=== PATIENT | male | born 1945 | race Caucasian/White ===

== ENCOUNTER 2020-03-27 13:39 | Inpatient (IN) | payer OTHER ==
[2020-03-27] MEDS ORDERED: CEFTRIAXONE/SWI 1gm 1 GM/10 ML SYR ONE (15:02)
[2020-03-27] MEDS ORDERED: IPRATROPIUM BROM 0.5MG/2.5ML ONE (15:02)
[2020-03-27] MEDS ORDERED: ALBUTEROL 2.5 MG/3 ML NEB SOL ONE (15:02)
[2020-03-27 15:15] LABS: Absolute Lymphocytes (CBC) 1.3 K/uL (0.7-4.9); Basophils % 0.3 % (0-1.3); Hematocrit 45.8 % (39.6-49.0); MPV 7.6 fL (7.6-11.3); RBC Red Blood Cell Count 5.05 M/uL (4.33-5.43)
[2020-03-27 15:23] LABS: Protime INR 1.05
--- NOTE | 2020-03-27 15:26 | RAD REPORT ---
EXAM DESCRIPTION: RAD - Chest Single View - 03/27/2020 2:57 pm CLINICAL HISTORY: SOB, smoking history, history of pneumonia, history of hemoptysis COMPARISON: None TECHNIQUE: AP portable chest image was obtained 03/27/2020 2:57 pm . FINDINGS: Large mass density is present superimposed on the right hilum and extending to the right l irma apex. Diffusely prominent interstitial markings throughout the lung lee with baseline for the patient unknown. Right hilar and right upper lung field findings are suspicious for malignancy. An atypical pneumonia presentation would be possible. Diffuse interstitial pattern could be extensive fibrosis, interstitia l edema or infiltrate. Heart size is normal. Pulmonary vasculature mostly obscured by the above detailed abnormalities. No measurable pleural effusion and no pneumothorax. No acute bony abnormality seen. No acute aortic find ings suspected. IMPRESSION: Large mass density filling the right hilum and right upper lung field. Finding is suspic ious for malignancy rather than atypical pneumonia or other mass. Diffusely prominent interstitial pattern could be fibrosis, interstitial edema, interstitial infiltra te or a combination. Follow-up CT chest imaging is recommended.
[2020-03-27 15:33] LABS: Bilirubin Direct 0.2 mg/dL (0-0.2); Bilirubin Total 0.5 mg/dL (0.2-1.0); Magnesium 2.2 mg/dL (1.8-2.4); Troponin (Emerg Dept Use Only) 0.14 ng/mL (0.0-0.045)
[2020-03-27 15:38] LABS: Potassium 2.8 mmol/L (3.5-5.1)
--- NOTE | 2020-03-27 16:11 | RAD REPORT ---
EXAM DESCRIPTION: CT - Chest Abdomen Pelvis W Cont - 03/27/2020 3:55 pm CLINICAL HISTORY: Chest pain;Dyspnea COMPARISON: No comparisons TECHNIQUE: Following dynamic enhancement using 100 milliliters nonionic IV contrast, axial imaging o f the chest, abdomen and pelvis was performed. Biphasic technique was utilized through the abdomen. No oral contrast administered. All CT scans are performed using dose optimization technique as appropriate and may include automated exposure control or mA/KV adjustment according to patient size. FINDINGS: Patient has a baseline of advanced emphysema. No pulmonary embolism present. No acute aort ic finding. No pleural effusion, pleural thickening or pneumothorax. A large 7.4 cm AP x 5.1 cm TR x 16 cm CC malignant mass is present in the anteromedial left chest. Th is extends from the anterior inferior margin of the left ventricle near the base superiorly to the ao rtic arch level. Mass partially encircles the left pulmonary artery and partially encircles the left mainstem bronchus. Mass involves the mediastinum and anteromedial left chest. Approximately 5.2 cm AP x 5 point and cm TR by 5.4 cm CC mass fills the superior right hilum. There i s obstruction of the right upper lobe bronchus. Postobstructive complete atelectasis of the right upp er lobe is present. No direct invasion of the chest wall confirmed. No abnormal axillary lymphadenopa thy. No focal lesions identified in the liver. No adrenal mass identified. Spleen and pancreas show no elsy picious findings. Gallbladder is absent or tightly contracted. No biliary tree dilatation. Delete vladimir ect Symmetric renal function is seen with no mass or hydronephrosis. Small renal cysts are present. N o urinary bladder abnormality seen. The prostate gland is enlarged and projects into the bladder base . This appears to be extrinsic compression rather than invasion. No gastric dilatation or wall thickening. Moderately large stool volume throughout the colon. No acut e diverticulitis. Patient has prominent diverticulosis. No primary colon process identified. Disc and bony degenerative changes are present. No pathologic bone process identified. No significant vascular findings. IMPRESSION: As detailed above, patient has large malignant masses filling the anterior chest. On the right the mass fills from the right hilum to near the right apex. Left mass component extends from t he anterior inferior heart border to the top of the aortic arch. Right malignant mass obstructs the right upper lobe bronchus with postobstructive atelectasis and/ or pneumonia of the right upper lobe. No liver or adrenal lesions seen. No acute or emergent finding below the diaphragm.
--- NOTE | 2020-03-27 16:13 | RAD REPORT ---
EXAM DESCRIPTION: CT - Soft Tissue Neck W/Contr - 03/27/2020 3:55 pm CLINICAL HISTORY: Swelling;Congestion COMPARISON: No comparisons TECHNIQUE: During dynamic enhancement using 100 milliliters nonionic IV contrast, axial 5 millimeter thick images of the neck were obtained. All CT scans are performed using dose optimization technique as appropriate and may include automated exposure control or mA/KV adjustment according to patient size. FINDINGS: Limited intracranial portion the examination is unremarkable. Mastoid air cells and partia lly visualized paranasal sinuses are clear. No gross globe or orbital content abnormality seen. No ph aryngeal mucosal mass or asymmetry. No focal laryngeal or epiglottis abnormality. No abnormal cervical lymphadenopathy. No cervical bronchial obstructive process seen. Parotid, submandibular and thyroid gland tissues are unremarkable. Prominent bony degenerative change present without acute finding. IMPRESSION: Contrast-enhanced CT cervical/soft tissue neck imaging shows no acute or suspicious find ing.
[2020-03-27] MEDS ORDERED: KCL 20 MEQ/100 mL IVPB 20 MEQ/100 ML BAG IV ONE (16:21)
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
--- NOTE | 2020-03-27 16:43 | RAD REPORT ---
EXAM DESCRIPTION: US - Extrem Venous W Compress Arturo - 03/27/2020 4:31 pm CLINICAL HISTORY: SWELLING, bilateral leg pain, bilateral leg swelling COMPARISON: None. TECHNIQUE: Real-time sonographic evaluation of the bilateral lower extremity common femoral, superfi cial femoral, popliteal and posterior tibial veins was performed. FINDINGS: Normal compressibility, flow augmentation, phasic flow and spontaneous flow are identified in the left and right lower extremity common femoral, superficial femoral, popliteal and posterior t ibial veins. No intraluminal filling defects seen. IMPRESSION: No DVT in either lower extremity.
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
[2020-03-27 17:24] LABS: Urine Bacteria NONE SEEN /HPF (NONE SEEN); Urine Culture Reflex Order NOT NEEDED; Urine Mucus 1+ /HPF (NONE SEEN); Urine RBC <5 /HPF (NONE SEEN)
[2020-03-27 17:24] LABS: Urine Blood NEGATIVE (NEG); Urine Glucose NEGATIVE (NEG); Urine Protein TRACE (NEG)
[2020-03-27] MEDS ORDERED: METOPROLOL TARTRATE 5 MG/5 ML INJ IV PRN (22:20)
[2020-03-27] MEDS ORDERED: ACETAMINOPHEN 500 MG TAB PO PRN (22:20)
[2020-03-27] MEDS ORDERED: ONDANSETRON 4 MG/2 ML VIAL IV PRN (22:20)
[2020-03-27 22:36] VITALS: BMI 21.0
[2020-03-27] MEDS ORDERED: LORAZEPAM 0.5 MG TABLET PO ONE (22:38)
[2020-03-27] MEDS: ARFORMOTEROL TARTRATE 15 MCG/2 ML VIAL.NEB NEB SCH (22:40)
[2020-03-27 23:07] LABS: CKMB Creatine Kinase MB 2.5 ng/mL (0.3-3.6); Troponin I 0.18 ng/mL (0.0-0.045)
[2020-03-27] MEDS: BENZONATATE 100 MG CAP PO PRN (23:39)
[2020-03-28] MEDS: METHYLPREDNISOLONE 40 MG INJ IV SCH ×2 (00:14→08:34)
[2020-03-28] MEDS: KCL 20 MEQ/100 mL IVPB 20 MEQ/100 ML BAG IV SCH ×3 (02:23→06:55)
[2020-03-28] MEDS ORDERED: NA CHLORIDE 0.9% 500 ML ONE (02:27)
[2020-03-28 06:06] LABS: Absolute Lymphocytes (CBC) 0.8 K/uL (0.7-4.9); Basophils % 0.1 % (0-1.3); Hematocrit 39.8 % (39.6-49.0); Lymphocytes % 6.3 % (15.3-44.8); MPV 7.3 fL (7.6-11.3); RBC Red Blood Cell Count 4.39 M/uL (4.33-5.43)
[2020-03-28 06:08] LABS: Protime INR 1.16
[2020-03-28 06:17] LABS: CKMB Creatine Kinase MB 2.2 ng/mL (0.3-3.6); Troponin I 0.12 ng/mL (0.0-0.045)
[2020-03-28 06:22] LABS: ALT/SGPT 25 U/L (12-78); AST/SGOT 23 U/L (15-37); Albumin 2.4 g/dL (3.4-5.0); Alkaline Phosphatase 85 U/L (45-117); BUN Blood Urea Nitrogen 15 mg/dL (7-18); Bicarbonate 34 mmol/L (21-32); Bilirubin Total 0.4 mg/dL (0.2-1.0); Glucose Level 113 mg/dL (74-106); HDL Cholesterol 58 mg/dL (40-60); LDL Cholesterol, Calculated 62 (<130); Magnesium 2.2 mg/dL (1.8-2.4); Potassium 3.5 mmol/L (3.5-5.1); Protein, Total 6.6 g/dL (6.4-8.2); Sodium Level 145 mmol/L (136-145); Thyroid Stimulating Hormone 0.447 uIU/mL (0.360-3.740)
[2020-03-28] MEDS ORDERED: TRAMADOL HCL 50 MG TAB PO PRN (07:39)
[2020-03-28] MEDS ORDERED: MORPHINE 2 MG/ML SYR IV PRN (07:39)
[2020-03-28] MEDS ORDERED: LORazepam 2 MG/ML VIAL IV PRN (07:41)
[2020-03-28 07:46] LABS: Blood Morphology Comment NOT SEEN (NOT SEEN); Platelet Estimate ADEQ
[2020-03-28] MEDS: ARFORMOTEROL TARTRATE 15 MCG/2 ML VIAL.NEB NEB SCH ×2 (07:57→19:40)
[2020-03-28] MEDS: IPRATROPIUM BROM 0.5MG/2.5ML NEB PRN ×3 (07:57→19:40)
[2020-03-28] MEDS: ALBUTEROL 2.5 MG/3 ML NEB SOL NEB PRN ×2 (07:57→14:57)
[2020-03-28] MEDS: HYDROCODONE/APAP 7.5/325 MG TAB PO PRN ×2 (08:35→20:15)
[2020-03-28] MEDS ORDERED: THIAMINE HCL 100 MG TABLET PO SCH (09:00)
[2020-03-28] MEDS ORDERED: CEFTRIAXONE 1 GM/NS 50 ML 1 GM/50 ML BAG IV SCH (09:00)
[2020-03-28] MEDS ORDERED: SPIRONOLACTONE 25 MG TABLET PO SCH (09:00)
[2020-03-28] MEDS ORDERED: AZITHROMYCIN IV 250 MG in NA CHLORIDE 0.9% 250 ML IVPB SCH (09:00)
[2020-03-28] MEDS ORDERED: FOLIC ACID 1 MG TABLET PO SCH (09:00)
[2020-03-28] MEDS ORDERED: ENOXAPARIN 40 MG/0.4 ML SQ SCH (09:00)
[2020-03-28] MEDS ORDERED: CEFTRIAXONE/SWI 1gm 1 GM/10 ML SYR IVP SCH (09:00)
--- NOTE | 2020-03-28 11:12 | EKG ---
Test Date: 2020-03-27 Test Time: 14:37:12 Designer And Patternmaker: RANJITH MEASUREMENT RESULTS: Intervals: Rate: 78 MD: 148 QRSD: 90 QT: 394 QTc: 449 [place]: P: 61 MD: 148 QRS: 75 T: 67 INTERPRETIVE STATEMENTS: Normal sinus rhythm Normal ECG No previous ECG available for comparison Electronically Signed On 03-28-20 11:10:23 CDT by Demetrius Youssef
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
[2020-03-28] MEDS ORDERED: levoFLOXacin 500 MG TAB PO SCH (14:00)
--- NOTE | 2020-03-28 14:57 | P.PN ---
Subjective Date of Service: 03/28/20 Primary Care Provider: None Chief Complaint: Shortness of breath Subjective: Other (Patient stable this time. Patient on 6 L per nasal cannula. Patient appears comfortable) Physical Examination - Vital Signs Temperature: 98 F Blood Pressure: 149/84 Pulse: 63 Respirations: 16 Pulse Ox (%): 90 - Physical Exam General: Alert, Cachectic HEENT: Atraumatic Respiratory: Crackles/rales (Bilateral), Expiratory wheezes Cardiovascular: Normal pulses, Regular rate/rhythm Gastrointestinal: Normal bowel sounds, No masses, No rebound, No guarding Integumentary: Other (Muscle wasting to the upper lower extremities bilateral. Edema slightly improved) Neurological: Normal speech, Normal strength at 5/5 x4 extr, Normal tone, Normal affect - Studies Laboratory Data (last 24 hrs) 03/27/20 14:45: APTT 29.2 03/27/20 14:45: Amylase 493 H*, Lipase 66 L 03/27/20 14:45: PT 12.4, INR 1.05 03/27/20 14:45: WBC 15.9 H, Hgb 15.0, Hct 45.8, Plt Count 262 03/27/20 14:45: Sodium 144, Potassium 2.8 L*, BUN 18, Creatinine 0.84, Glucose 99, Magnesium 2.2, Total Bilirubin 0.5, AST 35, ALT 35, Alkaline Phosphatase 106 Assessment & Plan Discharge Plan: Home (With hospice) Plan to discharge in: 48 Hours Physician Review Additional Text: Impression: Dyspnea, hemoptysis, weight loss secondary to Acute respiratory failure with hypoxia multifactorial related to COPD exacerbation with suspected acute on chronic diastolic CHF and suspected lung cancer with noted CT scan revealing Large 7.5 cm x 5.1 cm x 16 cm malignant mass in the anterior medial left chest. This extends from the anterior inferior margin of the left ventricle near the base superiorly to the aortic arch level. Mass partially encircles the left pulmonary artery and partially encircles the left main bronchus. Mass involves the mediastinum and anterior medial left chest. There is also a 5.2 cm x 5 cm x 5.4 cm mass filling the superior right hilum. There is an obstruction of the right upper lobe bronchus. Postobstructive complete atelectasis of the right upper lobes present. Elevated blood pressure suspect hypertension Elevated troponin likely ischemic demand and related to suspected underlying acute on chronic diastolic CHF Enlarged prostate Plan: Patient stable this time. Case discussed with pulmonology. Will change IV antibiotic therapy to oral. Will transition to oral steroids. Will provide medication for pain and anxiety. Case discussed at length with patient. Patient understands his condition is likely terminal lung cancer. He does not want any further intervention this includes biopsy, possible treatment. Advanced directives readdressed. Patient remains do not resuscitate. Hospice again readdressed. He understands this in detail. He wants to pursue hospice at this time. Will check with social media marketing specialist to see what options are available whether hospice at home or hospice at [facility]. Need to check to see if patient has insurance to approve hospice at [facility]. Continue comfort measures at this time. Patient lives by himself in an RV. He has no other family except a [id number] in [place]. I have spoken to the brother in law. Unfortunately his brother in law is not able to take him in. Will pursue hospice options. Anticipate discharge in the next 24-72 hr pending hospice options. Time Spent Managing Pts Care (In Minutes): 55
[2020-03-28 16:55] VITALS: TEMP 98.7
[2020-03-28] MEDS: BENZONATATE 100 MG CAP PO PRN (20:15)
[2020-03-28 20:36] VITALS: O2SAT 95
[2020-03-28] MEDS ORDERED: ENSURE ENLIVE 237 ML CAN PO SCH (21:00)
[2020-03-28] MEDS ORDERED: predniSONE 20 MG TAB PO SCH (21:00)
[2020-03-28 21:06] VITALS: BP 159/84
[2020-03-29] MEDS ORDERED: MORPHINE 2 MG/ML SYR ONE (00:45)
[2020-03-29] MEDS ORDERED: HYDRALAZINE HCL 10 MG TABLET ONE (00:45)
[2020-03-29] MEDS ORDERED: SCOPOLAMINE HYDROBROMIDE PATCH TD ONE (00:46)
== END 2020-03-28 22:53 | disposition hospice, inpatient (51) | DRG 180 ==
LOC: ER 13:39 → ERHOLD 17:03 → 4TH 21:48
PROVIDERS: ADMIT Family Medicine; ATTEND Family Medicine
DX: C34.11 Malignant neoplasm of upper lobe, right bronchus or lung (principal); J96.01 Acute respiratory failure with hypoxia; R64 Cachexia; R04.2 Hemoptysis; J44.1 Chronic obstructive pulmonary disease with (acute) exacerbation; F41.9 Anxiety disorder, unspecified; N40.0 Benign prostatic hyperplasia without lower urinary tract symptoms; F17.210 Nicotine dependence, cigarettes, uncomplicated; R03.0 Elevated blood-pressure reading, without diagnosis of hypertension; R79.89 Other specified abnormal findings of blood chemistry; Z90.49 Acquired absence of other specified parts of digestive tract; Z68.21 Body mass index [BMI] 21.0-21.9, adult; Z60.2 Problems related to living alone; Z20.828 Contact with and (suspected) exposure to other viral communicable diseases
CPT/HCPCS: 36415; 70491; 71045; 71260; 74177; 80048; 80053; 80061; 80076; 81003; 81015; 82150; 82550; 82553; 82565; 82947; 83605; 83690; 83735; 83880; 84132; 84145; 84153; 84439; 84443; 84484; 85025; 85610; 85730; 87040; 93005; 93970; 99285; J0456; J0696; J1650; J2920; J3480; J7040; J7050; J7512; J7605; Q9967; U0003

== ENCOUNTER 2020-03-28 22:55 | Inpatient (IN) | payer OTHER ==
[2020-03-28 23:47] VITALS: BMI 21.0
[2020-03-28] MEDS ORDERED: BISACODYL E.C. 5 MG TAB PO PRN (23:52)
[2020-03-28] MEDS ORDERED: HYDROCODONE/APAP 7.5/325 MG TAB PO PRN (23:52)
[2020-03-28] MEDS ORDERED: ACETAMINOPHEN 650MG/RECT SUPP PR PRN (23:52)
[2020-03-28] MEDS ORDERED: ACETAMINOPHEN 500 MG TAB PO PRN (23:52)
[2020-03-28] MEDS ORDERED: BISACODYL 10 MG RECTAL SUPP PR PRN (23:52)
[2020-03-29] MEDS ORDERED: SCOPOLAMINE HYDROBROMIDE PATCH TD ONE (00:30)
[2020-03-29] MEDS: MORPHINE 2 MG/ML SYR IV PRN ×5 (00:34→21:26)
[2020-03-29] MEDS: HYDRALAZINE HCL 10 MG TABLET PO PRN ×4 (00:34→21:26)
[2020-03-29] MEDS: LORazepam 2 MG/ML VIAL IV PRN ×3 (00:54→16:26)
[2020-03-29] MEDS: BENZONATATE 100 MG CAP PO PRN (16:26)
[2020-03-29] MEDS: GLYCOPYRROLATE 0.2 MG/ML SYR IV PRN (21:26)
[2020-03-30] MEDS: LORazepam 2 MG/ML VIAL IV PRN ×3 (00:35→09:00)
[2020-03-30] MEDS: MORPHINE 2 MG/ML SYR IV PRN ×6 (00:35→23:19)
[2020-03-30 06:16] VITALS: O2SAT 90
[2020-03-30] MEDS: GLYCOPYRROLATE 0.2 MG/ML SYR IV PRN ×2 (07:29→21:39)
[2020-03-31] MEDS: MORPHINE 2 MG/ML SYR IV PRN (08:35)
[2020-03-31] MEDS: BENZONATATE 100 MG CAP PO PRN (08:41)
[2020-03-31] MEDS: HYDRALAZINE HCL 10 MG TABLET PO PRN (08:41)
[2020-03-31 08:55] VITALS: BP 164/100; TEMP 98.3
[2020-03-31] MEDS ORDERED: SCOPOLAMINE HYDROBROMIDE PATCH TD SCH (09:00)
[2020-03-31] MEDS ORDERED: MORPHINE 2 MG/ML SYR ONE (10:08)
== END 2020-03-31 09:29 | disposition hospice, inpatient (51) | DRG 951 ==
LOC: 4TH 22:55 → 2ND 03-29 17:09
PROVIDERS: ADMIT Internal Medicine Hematology & Oncology; ATTEND Internal Medicine Hematology & Oncology
DX: Z51.5 Encounter for palliative care (principal)
CPT/HCPCS: 94640; J2270